=== PATIENT | female | born 1980 | race African-American/Black ===

== ENCOUNTER 2016-07-15 13:41 | Emergency (ER) | payer BC, OTHER ==
[~2016-07-15 13:41] MED LIST: CENTRUM PO; CLARIT10 PO; DIPHENCR TOP; K500 PO; P10 PO
[2016-08-21] MEDS ORDERED: NORITATE1% TOP (16:04)
[2016-08-21] MEDS ORDERED: FLAG500TAB PO (16:05)
[2016-08-21] MEDS ORDERED: NORCO1 TA1 PO (16:08)
[2016-10-12] MEDS ORDERED: VIVLODEX10 MG PO (09:06)
[2016-10-12] MEDS ORDERED: FERROUS SULF325 M1 PO (09:28)
== END 2016-07-15 15:00 | disposition home or self-care (01) ==
LOC: ER 13:41
DX: R20.2 Paresthesia of skin (principal); I10 Essential (primary) hypertension; Z88.5 Allergy status to narcotic agent; Z79.899 Other long term (current) drug therapy
CPT/HCPCS: 99284

== ENCOUNTER 2016-10-15 06:12 | Day surgery (SDC) | payer BC ==
--- NOTE | ~2016-10-15 | OP ---
Record Of Operation [facility] [address] [place]. [address] NAME: LISSETTE FAGAN : 76 STATUS : REG [facility] PAT#: [id number] AGE: 36 ADM/REG DATE : 10/15/16 MR#: [id number] REPORT SERV DATE: 10/15/16 DICTATED BY: RICHMOND SMITH DATE: 10/15/16 REPORT STATUS : Draft TRANSCRIBED BY: MODL DATE: 10/15/16 DATE OF PROCEDURE: 10/15/2016 PREOPERATIVE DIAGNOSIS: L3-L4 and L4-L5 disk herniation with bilateral foraminal stenosis. POSTOPERATIVE DIAGNOSES: L3-L4 and L4-L5 disk herniation with bilateral foraminal stenosis. PROCEDURE: Bilateral L3-L4 and L4-L5 microdiskectomy with bilateral laminal foraminotomies, decompression of the L3-L5 nerve roots bilaterally, minimal access spine technology, operative microscope, intraoperative O-arm CT scan with computer navigation. SURGEON: Richmond Smith DO. ANESTHESIA: General. ESTIMATED BLOOD LOSS: 10 mL. COMPLICATIONS: None. INDICATIONS: The patient is a pleasant 36-year-old with intractable leg pain, failed conservative treatment. After discussion of risks and benefits, elected to proceed with surgical intervention. PROCEDURE IN DETAIL: I identified the patient in the holding area. Consent was obtained. Went to the operating room. Underwent general anesthesia with endotracheal intubation. Prepped and draped in the usual sterile fashion. Operative safety pause was performed, then we proceeded. O-arm registration frame was placed in the iliac crest. O-arm was brought in for intraoperative CT scan. Computer registration materials were verified. Under computer guidance, a left longitudinal incision was made over the L3-L5 level, taken down through the fascial layer. Tube dilators were used to minimally invasively dissect down to the left L3- L4 interspace. Operative microscope was brought in. A lester was used to perform a laminotomy and partial facetectomy. Kat performed a foraminotomy and laminectomy from the left side. Disk was incised and free disk material removed with pituitary. A Angie elevator was used to gently depress the dural sac and Kat was reached across to the contralateral right side to perform a laminal foraminotomy. This was repeated again at the L4-L5 level. Irrigation was performed. Hemostasis was achieved. 40 mg Depo-Medrol injected over the nerve roots. Layered closure performed. Sterile dressings applied. The patient awoke and extubated, taken to the recovery room in stable condition. OPERATIVE FINDINGS: L3-L5 disk herniation with foraminal stenosis. KANWAL/SAMREEN Richmond Guido Record Of Operation [address] [address] NAME: LISSETTE FAGAN : 76 STATUS : REG [facility] PAT#: [id number] AGE: 36 ADM/REG DATE : 10/15/16 MR#: [id number] REPORT SERV DATE: 10/15/16 DICTATED BY: RICHMOND SMITH DATE: 10/15/16 REPORT STATUS : Draft TRANSCRIBED BY: MODL DATE: 10/15/16 DO Luis / [id number] CC: Richmond Smith DO
[~2016-10-15 06:12] MED LIST changes: +FERROUS SULF325 M1 PO; +FLAG500TAB PO; +NORCO1 TA1 PO; +NORITATE1% TOP; +VIVLODEX10 MG PO
== END 2016-10-15 14:34 | disposition home or self-care (01) ==
LOC: SDC 06:12
PROVIDERS: Orthopaedic Surgery
PROC: 01NB0ZZ Release Lumbar Nerve, Open Approach (ICD-10-PCS; 2016-10-15)
PROC: 0SB20ZZ Excision of Lumbar Vertebral Disc, Open Approach (ICD-10-PCS; principal; 2016-10-15 06:45)
DX: M51.26 Other intervertebral disc displacement, lumbar region (principal); I10 Essential (primary) hypertension; K21.9 Gastro-esophageal reflux disease without esophagitis; F32.9 Major depressive disorder, single episode, unspecified; Z79.899 Other long term (current) drug therapy; Z79.891 Long term (current) use of opiate analgesic; Z88.8 Allergy status to other drugs, medicaments and biological substances; Z98.890 Other specified postprocedural states; Z91.048 Other nonmedicinal substance allergy status
CPT/HCPCS: 84703; 88304; 88311; A9270-GY; J0690; J1030; J1170; J2250; J2405; J2710; J3010